=== PATIENT | female | born 1945 | race Caucasian/White ===

== ENCOUNTER 2018-04-30 13:17 | Inpatient (IN) ==
[2018-04-30] MEDS ORDERED: methylPREDNISolone 125 MG/2 ML VIAL IVP ONE (13:42)
[2018-04-30] MEDS ORDERED: Ipratropium/Albuterol Neb 3 ML IH ONE (13:42)
--- NOTE | 2018-04-30 13:49 | Emergency Department Note ---
Disposition Clinical Impression: Left lower lobe pneumonia, Elevated troponin, Shortness of breath, COPD (chronic obstructive pulmonary disease) Disposition: Admitted As Inpatient Condition: Good Referrals: Joseph Naidu DO [Primary Care Provider] - Forms: ED Satisfaction Letter [facility] - General Chief Complaint: ED Shortness of Breath/Dyspnea Stated Complaint: [place] Time Seen by Provider: 04/30/18 13:38 Source: patient Mode of arrival: ambulatory Limitations: no limitations Nursing Notes Reviewed: Yes Vital Signs Reviewed: Yes - History of Present Illness 73-year-old female presents emergency room for shortness of breath and coughing. Patient's been sick since Tuesday. Increasing cough. Increasing dyspnea. Subjective fevers. Intermittent chest pain. History of CHF as well as a history of COPD. Patient does do home inhalers but does not use any home nebulizer treatments. She does not wear home oxygen. She has a smoking history. She states she does have a history of COPD and follows with a knife operator as well as a optical engineer for her CHF history. No other complaints at this time. She denies any recent weight gain. She denies leg swelling. - Related Data Allergies Allergy/AdvReac Type Severity Reaction Status Date / Time Penicillins [PCN] Allergy See Verified 04/30/18 14:41 Comments Tetanus Vaccines and Toxoid Allergy See Verified 04/30/18 14:41 Comments All systems ED: reviewed and negative except as stated. Review of Systems: As Per HPI Constitutional: Reports: fever Eyes: Reports: as per HPI ENT ED: Reports: as per HPI Cardiovascular: Reports: chest pain Respiratory: Reports: cough, dyspnea Gastrointestinal: Reports: as per HPI Genitourinary: Reports: as per HPI Musculoskeletal: Reports: as per HPI Integumentary: Reports: as per HPI Neurological: Reports: as per HPI Psychiatric: Reports: as per HPI Endocrine: Reports: as per HPI, fatigue Hematological/Lymphatic: Reports: as per HPI Allergic/Immunologic: Reports: as per HPI Physical Exam - General Limitations: no limitations - Head Head exam: atraumatic, normocephalic - ENT ENT exam: normal exam - Neck Neck exam: Present: normal inspection - Chest Chest inspection: Present: normal inspection - Respiratory Respiratory exam: Present: respiratory distress, wheezes (Patient has extensive bilateral wheezes. Slight tachypnea.). Absent: accessory muscle use - Cardiovascular Cardiovascular exam: Present: regular rate, normal rhythm, normal heart sounds - Abdominal Exam Abdominal exam: Present: soft, Non-Tender, normal bowel sounds - Extremities Exam Extremities exam: Present: normal inspection. Absent: tenderness - Expanded Lower Extremity Exam Hip/Pelvis exam: Present: normal inspection - Back Exam Back exam: Present: normal inspection - Neurological Exam Neurological exam: Present: alert, oriented X3 - Psychiatric Psychiatric exam: Present: normal affect, normal mood - Skin Skin exam: Present: warm, dry, intact Course Vital Signs Temperature 97.6 F 04/30/18 13:24 Pulse Rate 68 04/30/18 13:24 Respiratory Rate 24 04/30/18 13:24 Blood Pressure 123/70 04/30/18 13:24 O2 Sat by Pulse Oximetry 88 04/30/18 13:24 Temperature 97.6 F 04/30/18 13:24 Pulse Rate 63 04/30/18 16:18 Respiratory Rate 22 04/30/18 16:18 Blood Pressure 132/52 04/30/18 16:18 O2 Sat by Pulse Oximetry 100 04/30/18 16:18 Oxygen Delivery Oxygen Delivery Nasal Cannula Shortness of Breath/Dyspnea - [facility] Narrative Medical decision making narrative: Patient's troponin was elevated at 0.[address] scan did not reveal any evidence of pulmonary embolus but did confirm the left-sided pneumonia. She has no active chest pain at this time. I do have her on oxygen. She does take aspirin and Plavix home. Patient will be admitted. I did speak with the hospitalist. I have ordered IV Levaquin for the pneumonia. Troponin is likely secondary to her infection causing hypoxia. - Medical Records Medical records reviewed: Yes I reviewed the patient's medical records. - Lab Data Lab results reviewed: Yes I reviewed the patient's lab results. Result diagrams: 04/30/18 14:15 04/30/18 14:15 Lab Results 04/30/18 04/30/18 04/30/18 Range/Units 14:15 14:15 14:15 WBC 14.1 H (4.3-11.1) K/mcL RBC 4.16 (3.82-4.97) M/mcL Hgb 10.9 L (11.5-15.4) g/dL Hct 34.0 L (35.3-44.9) % MCV 81.7 L (83.0-100.0) fL MCH 26.2 L (28.0-33.3) pg MCHC 32.1 (31.6-35.5) g/dL RDW 16.6 H (11.5-14.5) % Plt Count 139 L (140-400) K/mcL MPV 11.1 (9.4-12.4) fL Immature Gran % 0.6 (0-4) % Seg Neutrophils % 90.4 % Lymphocytes % 3.6 % Monocytes % 5.3 % Eosinophils % 0.0 % Basophils % 0.1 % Neutrophils # 12.7 H (1.6-8.9) K/mcL Lymphocytes # 0.5 L (0.6-4.6) K/mcL Monocytes # 0.8 (0.0-1.3) K/mcL Eosinophils # 0.0 (0.0-0.6) K/mcL Basophils # 0.0 (0.0-0.2) K/mcL Sodium 133 L (136-145) mEq/L Potassium 3.5 (3.5-5.1) mEq/L Chloride 101 (98-107) mEq/L Carbon Dioxide 24 (23-29) mEq/L BUN 9 (8-23) mg/dL Creatinine 1.01 (0.60-1.20) mg/dL Est GFR ( Amer) > 60 (> 60) Est GFR (Non-Af Amer) 54 L (> 60) BUN/Creatinine Ratio 9 (6-26) Glucose 129 H (70-105) mg/dL Calculated Osmolality 276 L (280-300) Calcium 8.6 (8.6-10.3) mg/dL Troponin I 0.11 H* (< 0.04) ng/mL B-Natriuretic Peptide 872 H (Less than 100) pg/mL - Radiology Data Radiology results reviewed: Yes I reviewed the patient's radiology results. - EKG Data EKG attestation: Yes I reviewed and interpreted this EKG. EKG results narrative: EKG shows a rate of 68. Dual-chamber paced rhythm. No other abnormality seen. Critical Care Time Critical Care Time: No
[2018-04-30 14:31] LABS: Basophils % 0.1 %; Hemoglobin 10.9 g/dL (11.5-15.4); Immature Granulocytes % 0.6 % (0-4); Lymphocytes # 0.5 K/mcL (0.6-4.6); Lymphocytes % 3.6 %; Mean Corpuscular HGB Conc 32.1 g/dL (31.6-35.5); Mean Corpuscular Hemoglobin 26.2 pg (28.0-33.3); Mean Corpuscular Volume 81.7 fL (83.0-100.0); Mean Platelet Volume 11.1 fL (9.4-12.4); Monocytes # 0.8 K/mcL (0.0-1.3); Monocytes % 5.3 %; Neutrophils # 12.7 K/mcL (1.6-8.9); Platelet Count 139 K/mcL (140-400); Red Blood Count 4.16 M/mcL (3.82-4.97); Red Cell Distribution Width 16.6 % (11.5-14.5); Segmented Neutrophils % 90.4 %
[2018-04-30 14:52] LABS: BUN/Creatinine Ratio 9 (6-26); Blood Urea Nitrogen 9 mg/dL (8-23); Calcium 8.6 mg/dL (8.6-10.3); Carbon Dioxide 24 mEq/L (23-29); Chloride 101 mEq/L (98-107); Glucose 129 mg/dL (70-105); Osmolality,Calculated 276 (280-300); Potassium 3.5 mEq/L (3.5-5.1); Sodium 133 mEq/L (136-145); eGFR For Non-African Americans 54 (> 60)
[2018-04-30 14:57] LABS: Troponin I 0.11 ng/mL (< 0.04)
[2018-04-30] MEDS ORDERED: Levofloxacin 500 MG/100 ML 500 MG/100 ML BAG IVPB ONE (15:00)
[2018-04-30] MEDS ORDERED: Isovue-370 500 ML BOTTLE IVP ONE (15:01)
[2018-04-30] MEDS ORDERED: Naloxone 0.4 MG/ML INJ IVP PRN (16:53)
[2018-04-30] MEDS ORDERED: *HR* Heparin 5,000 UNIT/ML VIAL IVP ONE (17:18)
[2018-04-30] MEDS ORDERED: *HR* Heparin 5,000 UNIT/ML VIAL IVP PRN ×2 (17:18)
[2018-04-30] MEDS ORDERED: Nitroglycerin 0.4 MG TAB.SUBL SL PRN (17:23)
[2018-04-30] MEDS ORDERED: Heparin 25,000 UNIT/250 ML D5W 25,000 UNIT/250 ML IV.SOLN IVC SCH (17:30)
--- NOTE | 2018-04-30 17:33 | Internal Med History&Physical ---
Date of Encounter: 04/30/18 Time of Encounter: 17:25 Internal Medicine - H&P: HPI Chief complaint: Shortness of breath Plans for Post Hospital Care: Home History of present illness: Ms. Jolly is a 73 year old female PMH of CHF, COPD, HLD, HTN, CAD s/p stent placement about 8 years ago. Patient presented to the ED due to shortness of breath and chest pain. Patient reports she has been feeling short of breath associated with a productive cough, subjective fever and chills since Tuesday. She reports today morning she was so short of breath that she could not even talk and decided to call EMS and was brought to the ED. The patient also reports having a 8/10 pressure like restro-sternal chest pain lasting more than one hour today. R eports feeling nauseated, denies vomiting but reports having dry heaves. Reports she has been sleeping on a recliner since February due to orthopnea, also stated she had edema in the lower extremities during the week but she has been taking a water pill and it has helped. Patient stated she has been treated for bronchitis multiple times since December, last time she was treated with steroid taper and antibiotics was in January. Past Med Surg Social Fam HX - Past Medical History Medical history: CHF, COPD, hyperlipidemia, hypertension, myocardial infarction Psychiatric history: no psych history - Social History Smoking Status: Former smoker Smokeless Tobacco Status: No Alcohol use: none Drug use: none Internal Medicine - H&P: Meds Allergy/AdvReac Type Severity Reaction Status Date / Time Penicillins [PCN] Allergy See Verified 04/30/18 14:41 Comments Tetanus Vaccines and Toxoid Allergy See Verified 04/30/18 14:41 Comments All Systems PM: A 10-system review of systems was performed and is negative for pertinent findings except as documented above in the HPI. - Constitutional Constitutional: chills, fever(s), weakness, no lethargy, no night sweats - EENT Eyes: no irritation - Cardiovascular Cardiovascular ROS IM: chest pain, dyspnea, dyspnea on exertion, lightheade dness, orthopnea, paroxysmal nocturnal dyspnea, no irregular heart rhythm, no palpitations - Respiratory Respiratory: cough, dyspnea on exertion, wheezing, chest congestion, excessive phlegm production, change in phlegm color, pain with cough - Gastrointestinal Gastrointestinal: nausea, no abdominal pain, no vomiting - Genitourinary Genitourinary: no dysuria, no urinary frequency, no urinary hesitancy, no urinary urgency - Musculoskeletal Musculoskeletal ROS IM: muscle weakness, no atrophy - Integumentary Integumentary IM: no erythema - Neurological Neurological ROS: no headache(s) - Psychiatric Psychiatric: no anxiety, no hopelessness - Endocrine Endocrine IM: no cold intolerance, no excessive sweating - Allergic/Immunologic Allergic/Immunologic: no GI upset with certain foods Additional comments: Rest of a 10 review of system negative. - Constitutional Vitals: Temp Pulse Resp BP Pulse Ox 97.6 F 63 22 132/52 100 04/30/18 17:22 04/30/18 17:22 04/30/18 17:22 04/30/18 17:22 04/30/18 17:22 Exam: Vitals: reviewed General: Alert and oriented x4. In mild distress due to shortness of breath Cardiovascular: RRR, normal S1 & S2, no rubs, murmurs or gallops. Lungs: b/l scattered expiratory wheezing, mild crackles at the bases b/l, rales at the left lower lobe. Abdomen: Obese, soft, non-tender, no rigidity. Extremities: No deformity, no edema or tenderness, no joint swelling or clubbing. Neurological: Normal cognition and motor skills. Rest of the physical exam is non contributory Internal Med - H&P Results - Labs CBC & Chem 7: 04/30/18 14:15 04/30/18 14:15 Labs: Short CBC 04/30/18 Range/Units 14:15 WBC 14.1 H (4.3-11.1) K/mcL Hgb 10.9 L (11.5-15.4) g/dL Hct 34.0 L (35.3-44.9) % Plt Count 139 L (140-400) K/mcL Neutrophils # 12.7 H (1.6-8.9) K/mcL BMP 04/30/18 14:15 Sodium 133 L Potassium 3.5 Chloride 101 Carbon Dioxide 24 BUN 9 Creatinine 1.01 Glucose 129 H Calcium 8.6 Cardiac Enzymes 04/30/18 Range/Units 14:15 Troponin I 0.11 H* (< 0.04) ng/mL - Impressions ITS Impressions Chest X-Ray 04/30/18 13:43 IMPRESSION: Left perihilar consolidation likely pneumonia. Recommend follow-up to document resolution. D/ / 04/30/2018 14:48:55 Abdoulaye Engel MD / Yvette Anthony Interpreting Provider: Abdoulaye Engel MD Chest CTA 04/30/18 15:01 IMPRESSION: 1. No evidence of pulmonary embolism 2. Left lower lobe airspace disease compatible with pneumonia 3. Trace bilateral pleural effusions with bibasilar atelectasis 4. 8 mm right lower lobe pulmonary nodule 5. Calcific coronary atherosclerosis RECOMMENDATIONS: Fleischner Society guidelines for follow-up and management of incidentally detected pulmonary nodules: Single Solid Nodule: Nodule size equals 6-8 mm In a low-risk patient, CT at 6-12 months, then consider CT at 18-24 months. In a high-risk patient, CT at 6-12 months, then CT at 18-24 months. - Low risk patients include individuals with minimal or absent history of smoking and other known risk factors. - High risk patients include individuals with a history or smoking or known risk factors. Radiology 2017 http://pubs.rsna.org/doi/full/10.1148/radiol.[email or web address] D/ / Will Enrique MD / Will Enrique MD Interpreting Provider: Will Enrique MD - Diagnostic Studies Chest x-ray Status: image reviewed by me (left lower lobe infiltrate) - Assessment and Plan (1) Acute hypoxemic respiratory failure Current Visit: Yes Status: Acute Assessment and plan: multifactorial copd vs pneumonia vs chf Plan Started on bronchodilators Q4RT scheduled Symbicort solu-medrol 125mg/IV x1 Solu-Medrol 40mg/IV Q8hr started on empiric antibiotics coverage with levofloxacin 750mg/IV daily Sputum culture and gram stain O2 by nasal cannula, titrate for O2Sat >92% ABG ordered blood culture (2) Pneumonia Current Visit: Yes Status: Acute Assessment and plan: plan of care as above Qualifiers: Pneumonia type: due to unspecified organism Laterality: left Lung location: lower lobe of lung Qualified Code(s): J18.1 - Lobar pneumonia, unspecified organism (3) CHF (congestive heart failure) Current Visit: Yes Status: Acute Assessment and plan: patient with shortness of breath elevated bnP and mild crackles at the bases b/l. will start patient on furosemide 20mg/IV BID. fluids restriction to 1.5 litters a day, will resume bb tomorrow morning. daily weight and strict intake and output. Qualifiers: Heart failure type: unspecified Heart failure chronicity: acute Qualified Code(s): I50.9 - Heart failure, unspecified (4) Chest pain Current Visit: Yes Status: Acute Assessment and plan: patient reporting retro-sternal crushing chest pain lasting >1 hour. patient with a significant history of CAD with multiple stent placed. will start patient on a heparin drip nitro 0.4mg SubL Q5Min x3 PRN clopidogrel 75mg/PO daily aspirin 325mg/PO once followed by aspirin 81mg/PO daily serial troponins telemetry monitoring TTE ordered to evaluate for wall motion abnormalities cardiology consulted, recommendations appreciated Qualifiers: Chest pain type: unspecified Qualified Code(s): R07.9 - Chest pain, unspecified (5) Elevated troponin Current Visit: Yes Status: Acute Assessment and plan: multi-factorial possible due to demand ischemia in the setting of copd exacerbation and pneumonia. plan of care as above. (6) CAD (coronary artery disease) Current Visit: Yes Status: Chronic Assessment and plan: will resume home medications. patient on ranexa, and plavix. Qualifiers: Coronary Disease-Associated Artery/Lesion type: unspecified vessel or lesion type [place] vs. transplanted heart: unspecified whether [place] or transplanted heart Associated angina: angina presence unspecified Qualified Code(s): I25.10 - Atherosclerotic heart disease of [place] coronary artery without angina pectoris (7) HLD (hyperlipidemia) Current Visit: Yes Status: Chronic Assessment and plan: continue simvastatin 40mg/PO daily. lipid panel ordered Qualifiers: Hyperlipidemia type: unspecified Qualified Code(s): E78.5 - Hyperlipidemia, unspecified (8) COPD (chronic obstructive pulmonary disease) Current Visit: Yes Status: Acute Assessment and plan: plan of care as per problem #1. Qualifiers: COPD type: COPD with acute exacerbation Qualified Code(s): J44.1 - Chronic obstructive pulmonary disease with (acute) exacerbation (9) DVT prophylaxis Current Visit: Yes Status: Acute Assessment and plan: patient on a heparin drip due to r/o acs - Time Spent With Patient Total time spent is greater than 50% in coordination of care (as documented) at patient's floor/unit and/or counseling patient: Greater than 35 minutes (45)
[2018-04-30] MEDS ORDERED: Aspirin 325 MG TABLET PO ONE (17:42)
[2018-04-30] MEDS ORDERED: Dextrose Gel 15 GM/37.5 ML TUBE PO PRN ×2 (17:48)
[2018-04-30] MEDS ORDERED: D5% in Water 1,000 ML IVC PRN (17:48)
[2018-04-30] MEDS ORDERED: *HR* Dextrose 50 % in Water (Syg) 50 ML SYRINGE IVP PRN (17:48)
[2018-04-30] MEDS ORDERED: *HR* Heparin 5,000 UNIT/ML VIAL SQ SCH (18:00)
[2018-04-30 18:03] LABS: Hematocrit 33.7 % (35.3-44.9); Hemoglobin 10.8 g/dL (11.5-15.4); Mean Corpuscular Hemoglobin 25.6 pg (28.0-33.3); Mean Corpuscular Volume 79.9 fL (83.0-100.0); Mean Platelet Volume 11.1 fL (9.4-12.4); Platelet Count 137 K/mcL (140-400); Red Blood Count 4.22 M/mcL (3.82-4.97); Red Cell Distribution Width 16.8 % (11.5-14.5)
[2018-04-30 18:13] LABS: INR 1.1; Prothrombin Time 12.9 Seconds (9.4-12.1)
[2018-04-30 18:14] LABS: ABG Base Excess -1 mEq/L (-2 to 3); ABG HCO3 22 mEq/L (21-27); ABG Oxygen Saturation 95 % (95-98); ABG PCO2 30 mmHg (35-45); ABG PH 7.48 pH Units (7.32-7.45); ABG PO2 67 mmHg (85-104); ABG TCO2 23 mEq/L (20-26)
[2018-04-30] MEDS: Furosemide 20 MG/2 ML VIAL IVP SCH ×2 (18:32→18:40)
[2018-04-30] MEDS: Ipratropium/Albuterol Neb 3 ML IH SCH ×2 (20:00→23:57)
[2018-04-30] MEDS: Budesonide/Formoterol 160/4.5 1 PUFF INH IH SCH (20:00)
[2018-04-30] MEDS: Ranolazine 500 MG TAB.ER.12H PO SCH (20:46)
[2018-04-30] MEDS: MethylPREDNISolone 40 MG/ML VIAL IVP SCH (23:50)
[2018-05-01 02:22] LABS: Basophils % 0.1 %; Hematocrit 31.9 % (35.3-44.9); Immature Granulocytes % 0.8 % (0-4); Lymphocytes # 0.7 K/mcL (0.6-4.6); Lymphocytes % 4.3 %; Mean Corpuscular HGB Conc 31.3 g/dL (31.6-35.5); Mean Corpuscular Hemoglobin 25.6 pg (28.0-33.3); Mean Corpuscular Volume 81.6 fL (83.0-100.0); Monocytes # 0.4 K/mcL (0.0-1.3); Monocytes % 2.5 %; Neutrophils # 15.7 K/mcL (1.6-8.9); Platelet Count 133 K/mcL (140-400); Red Blood Count 3.91 M/mcL (3.82-4.97); Red Cell Distribution Width 16.5 % (11.5-14.5); Segmented Neutrophils % 92.3 %
[2018-05-01 02:40] LABS: Albumin 3.5 g/dL (3.5-5.7); Albumin/Globulin Ratio 1.4 (1.1-2.2); Bilirubin,Direct 0.2 mg/dL (0.0-0.2); Bilirubin,Indirect 0.3 mg/dL (0.0-1.2); Bilirubin,Total 0.5 mg/dL (0.3-1.0); Chol/HDL Ratio 2.2 (0-4.9); Globulin 2.5 g/dL (2.4-3.5)
[2018-05-01 02:43] LABS: BUN/Creatinine Ratio 11 (6-26); Blood Urea Nitrogen 12 mg/dL (8-23); Calcium 8.5 mg/dL (8.6-10.3); Carbon Dioxide 22 mEq/L (23-29); Chloride 100 mEq/L (98-107); Glucose 173 mg/dL (70-105); Magnesium 1.5 mg/dL (1.6-2.6); Osmolality,Calculated 278 (280-300); Phosphorous 1.7 mg/dL (2.7-4.5); Potassium 2.8 mEq/L (3.5-5.1); Sodium 132 mEq/L (136-145); eGFR For Non-African Americans 52 (> 60)
[2018-05-01] MEDS ORDERED: MethylPREDNISolone 40 MG/ML VIAL IVP SCH (04:00)
[2018-05-01] MEDS: Ipratropium/Albuterol Neb 3 ML IH SCH ×6 (04:04→23:34)
[2018-05-01] MEDS: Budesonide/Formoterol 160/4.5 1 PUFF INH IH SCH ×2 (07:22→19:58)
[2018-05-01] MEDS ORDERED: Levofloxacin 750 MG/150 ML 750 MG/150 ML BAG IVPB SCH (09:00)
[2018-05-01] MEDS: Insulin LISPRO 300 UNITS/3 ML VIAL SQ SCH ×3 (10:14→17:57)
[2018-05-01] MEDS: Metoprolol XL (24 HR) Succ 50 MG TAB.ER.24H PO SCH (10:17)
[2018-05-01] MEDS: Aspirin Enteric Coated 81 MG Tablet PO SCH (10:17)
[2018-05-01] MEDS: Furosemide 20 MG/2 ML VIAL IVP SCH ×2 (10:17→17:57)
[2018-05-01] MEDS: MethylPREDNISolone 40 MG/ML VIAL IVP SCH ×2 (10:17→17:57)
[2018-05-01] MEDS: Ranolazine 500 MG TAB.ER.12H PO SCH ×2 (10:18→21:21)
--- NOTE | 2018-05-01 10:21 | Cardiology Consult Note ---
<Esteban Castillo - Last Filed: 05/01/18 14:56> Date of Encounter: 05/01/18 Time of Encounter: 09:30 Assessment and Plan (1) Elevated troponin Current Visit: Yes Status: Acute Likely 2/2 hypoxia with pneumonia Trended 0.11 -> 0.14 -> 0.07 -> 0.04 EKG showed dual paced rhythm at rate of 68 bpm Chest pain associated with coughing, likely musculoskeletal in nature Echo revealed LVEF 40-45% which is somewhat improved when compared to previous echo Discontinue heparin drip Cardiology will sign off at this time. Thank you for involving us in the care of this patient. Please do not hesitate to call with further questions. (2) Left lower lobe pneumonia Current Visit: Yes Status: Acute As seen on CXR and CTA chest Currently on supplemental O2, IV steroids, scheduled nebs, and IV Levaquin Management per primary Qualifiers: Pneumonia type: due to unspecified organism Qualified Code(s): J18.1 - Lobar pneumonia, unspecified organism (3) COPD exacerbation Current Visit: Yes Status: Acute 2/2 pneumonia Management per primary Currently receiving IV steroids, scheduled nebs, and IV Levaquin (4) CAD (coronary artery disease) Current Visit: Yes Status: Chronic Continue home ASA, Plavix, Toprol, Ranexa, and Zocor PRN nitro Qualifiers: Coronary Disease-Associated Artery/Lesion type: unspecified vessel or lesion type [place] vs. transplanted heart: unspecified whether [place] or transplanted heart Associated angina: angina presence unspecified Qualified Code(s): I25.10 - Atherosclerotic heart disease of [place] coronary artery without angina pectoris (5) Acute on chronic systolic (congestive) heart failure Current Visit: Yes Status: Acute Echo from today revealed the following: - LVEF 40-45% - Moderate LV diastolic dysfunction - Moderately dilated LV - Mild mitral regurgitation Per outpatient chart review, EF on echo from 01/2012 showed LVEF of 35-40% Continue diuresis at this time (6) HLD (hyperlipidemia) Current Visit: Yes Status: Chronic Continue home Zocor 40mg daily Qualifiers: Hyperlipidemia type: unspecified Qualified Code(s): E78.5 - Hyperlipidemia, unspecified Discussion w patient/family: The assessment and plan as outlined above was discussed with the patient and/or family members who expressed understanding and agreement. All questions were answered. Thank you for involving us in the care of your patient. Please call with any questions. History of Present Illness Consult date: 04/30/18 Requesting physician: Minh Frederick Consult reason: Chest pain with elevated troponins Chief complaint: Shortness of breath History of present illness: Ms. Jolly is a 73 year old female with PMH of CHF, COPD, HLD, HTN, CAD with stents placed approximately 8 years ago. She originally presented to the ED on 04/30 complaining of shortness of breath and chest pain. States she has been experiencing these symptoms with increased cough, fever, chills, and wheezing for approximately 5 days at this time. Describes the chest pain as substernal worsened with coughing. Admits to accompanying nausea. CXR from the ED revealed left perihilar consolidation likely pneumonia. Chest CTA revealed left lower lobe airspace disease compatible with pneumonia, negative for PE, with an 8 mm right lower lobe pulmonary nodule. WBC was elevated at 14.1. Initial troponin was elevated at 0.11. BNP of 872. EKG from the ED showed dual paced rhythm with rate of 68. When admitted she was started on scheduled bronchodilators, symbicort, IV steroids, IV levaquin, IV Lasix, and fluid restricted diet. Pt seen and examined at bedside. States she continues to be somewhat short of breath and feels generally unwell, but states significant improvement after br eathing treatments. States chest pain has improved and is now only present when she coughs. Denies any headache, numbness, or tingling. Past Med Surg Social Fam HX - Past Medical History Medical history: CHF, COPD, hyperlipidemia, hypertension, myocardial infarction Psychiatric history: no psych history - Social History Smoking Status: Former smoker Smokeless Tobacco Status: No Alcohol use: none Drug use: none - Family History Mother Living Status: Still Living Hx Family Cardiac Disorders: Yes (MA) Hx Family Cancer: Yes (colon) Father Living Status: Hx Family Cardiac Disorders: Yes (MA) Medications and Allergies Acetaminophen [Tylenol] 325 mg PO Q4H PRN 05/01/18 [History] Albuterol Sulfate [Ventolin Hfa] 2 puff IH Q6H PRN 05/01/18 [History] Allopurinol [Zyloprim 100 MG] 100 mg PO DAILY 05/01/18 [History] Aspirin [Lo-Dose Aspirin EC] 81 mg PO DAILY 05/01/18 [History] Calcium Carbonate [Calcium] 1,200 mg PO BID 05/01/18 [History] Cholecalciferol (Vitamin D3) [Vitamin D] 2,000 unit PO BID 05/01/18 [History] Clopidogrel [Plavix] 75 mg PO DAILY 05/01/18 [History] DiphenhydraMINE [Benadryl] 25 mg PO PRN PRN 05/01/18 [History] EPINEPHrine [Epipen] 0.3 mg IM ONCE PRN 05/01/18 [History] Fluticasone/Vilanterol [Breo Ellipta 100-25 Mcg INH] 1 puff IH DAILY 05/01/18 [History] Lisinopril [Zestril] 5 mg PO DAILY 05/01/18 [History] Loratadine [Claritin] 10 mg PO DAILY PRN 05/01/18 [History] Meloxicam 15 mg PO DAILY 05/01/18 [History] Metoprolol Succinate [Toprol Xl] 100 mg PO DAILY 05/01/18 [History] Nitroglycerin 0.4 mg SL Q5M PRN 05/01/18 [History] Omeprazole [PriLOSEC] 20 mg PO DAILY 05/01/18 [History] Ranolazine [Ranexa] 1,000 mg PO BID 05/01/18 [History] Simvastatin [Zocor] 40 mg PO HS 05/01/18 [History] Spironolactone [Aldactone] 25 mg PO DAILY 05/01/18 [History] Umeclidinium [place] [Incruse Ellipta] 1 puff IH DAILY 05/01/18 [History] Varenicline Tartrate [Chantix Starting Month GRACE] 1 tab PO PER PKG DI 05/01/18 [History] Allergy/AdvReac Type Severity Reaction Status Date / Time carvedilol [From Coreg] Allergy See Verified 05/01/18 14:34 Comments Penicillins [PCN] Allergy See Verified 05/01/18 14:34 Comments Tetanus Vaccines and Toxoid Allergy See Verified 05/01/18 14:34 Comments All Systems Review: The remainder of the systems were reviewed and are negative - Constitutional Constitutional: chills, fatigue, fever(s), weakness, no frequent falls, no headache(s), no night sweats - EENT Eyes: no blurred vision, no loss of vision - Cardiovascular Cardiovascular: chest pain at rest, chest pain with exertion, dyspnea at rest, dyspnea on exertion, leg edema, orthopnea, no lightheadedness, no palpitations, no paroxysmal nocturnal dyspnea - Respiratory Respiratory: cough, dyspnea, wheezing, no hemoptysis - Gastrointestinal Gastrointestinal: nausea, no abdominal pain, no constipation, no diarrhea - Genitourinary Genitourinary: no dysuria, no hematuria - Musculoskeletal Musculoskeletal: no arthralgias, no myalgias - Integumentary Integumentary: no erythema, no rash, no unusual bruising - Neurological Neurological: no dizziness, no numbness, no syncope, no tingling - Hematological/Lymphatic Hematologic/Lymphatic: no easy bleeding, no easy bruising Physical Examination Vital Signs, Last 4 Hours Temp Pulse Resp BP Pulse Ox 05/01/18 08:08 97.3 F L 61 16 109/46 95 05/01/18 07:24 18 96 General: Conversant, Other (mild distress, appears ill ) HEENT: Atraumatic, Normocephaly, Mucus Membranes Moist Neck: No JVD, Normal carotid pulses Cardiac: Reg Rate and Rhythm, Normal S1 and S2, No Murmur Lungs: Other (grossly diminished breath sounds with diffuse expiratory wheezes ) Neuro: Alert and responsive, No focal deficits noted Abdomen: Soft, Non-Tender Skin: No rashes noted on visualized skin Musculoskeletal: No Chest Wall Tenderness Extremities: No Clubbing, No Cyanosis, No Edema, Normal Pulses Results 05/01/18 01:44 05/01/18 01:44 Lab Results 04/30/18 04/30/18 04/30/18 14:15 14:15 14:15 WBC 14.1 H Hgb 10.9 L Hct 34.0 L Plt Count 139 L INR Sodium 133 L Potassium 3.5 Chloride 101 Carbon Dioxide 24 BUN 9 Creatinine 1.01 Glucose 129 H Calcium 8.6 Magnesium Total Bilirubin AST ALT Alkaline Phosphatase Troponin I 0.11 H* B-Natriuretic Peptide 872 H 04/30/18 04/30/18 04/30/18 17:48 17:48 17:48 WBC 14.8 H Hgb 10.8 L Hct 33.7 L Plt Count 137 L INR 1.1 Sodium Potassium Chloride Carbon Dioxide BUN Creatinine Glucose Calcium Magnesium Total Bilirubin AST ALT Alkaline Phosphatase Troponin I 0.14 H* B-Natriuretic Peptide 04/30/18 05/01/18 05/01/18 23:16 01:44 01:44 WBC 17.1 H Hgb 10.0 L Hct 31.9 L Plt Count 133 L INR Sodium 132 L Potassium 2.8 L Chloride 100 Carbon Dioxide 22 L BUN 12 Creatinine 1.05 Glucose 173 H Calcium 8.5 L Magnesium 1.5 L Total Bilirubin AST ALT Alkaline Phosphatase Troponin I 0.07 H* B-Natriuretic Peptide 05/01/18 05/01/18 01:44 05:59 WBC Hgb Hct Plt Count INR Sodium Potassium Chloride Carbon Dioxide BUN Creatinine Glucose Calcium Magnesium Total Bilirubin 0.5 AST 18 ALT 9 Alkaline Phosphatase 70 Troponin I 0.04 H* B-Natriuretic Peptide - Imaging and Cardiology Chest Xray: report reviewed, image reviewed Echo: report reviewed, image reviewed Other Results: Chest CTA images and report reviewed - EKG Interpretation EKG results cardiology: personally reviewed, other (dual paced rhythm with rate of 68) Consult Discharge Plan - Plan Referrals: Joseph Naidu DO [Primary Care Provider] - 05/08/18 1:30 pm <Raisa Darling - Last Filed: 05/01/18 16:04> Date of Encounter: 05/01/18 - Attending Attestation I examined this patient and my medical decision-making was reviewed with the Resident Physician. I agree with the documented findings, disposition and treatment plan as described. Ms. Jolly presents with pleuritic chest discomfort in setting of PNA. Troponin elevated at 0.14. ECG paced rhythm. Echo demonstrated LVEF 45% which is improved when compared to prior assessments of LVEF. No further cardiac testing is warranted at this time. Recommend discontinuing heparin gtt. Recommend outpatient Cardiology follow up. Will sign off. Assessment and Plan Discussion w patient/family: The assessment and plan as outlined above was discussed with the patient and/or family members who expressed understanding and agreement. All questions were answered. Thank you for involving us in the care of your patient. Please call with any questions. History of Present Illness History of present illness: Ms. Jolly is a 73 year old female All Systems Review: The remainder of the systems were reviewed and are negative Physical Examination Vital Signs, Last 4 Hours Temp Pulse Resp BP Pulse Ox 05/01/18 15:31 97.4 F L 89 17 108/63 94 Results 05/01/18 01:44 05/01/18 01:44 Lab Results 04/30/18 04/30/18 04/30/18 17:48 17:48 17:48 WBC 14.8 H Hgb 10.8 L Hct 33.7 L Plt Count 137 L INR 1.1 Sodium Potassium Chloride Carbon Dioxide BUN Creatinine Glucose Calcium Magnesium Total Bilirubin AST ALT Alkaline Phosphatase Troponin I 0.14 H* 04/30/18 05/01/18 05/01/18 23:16 01:44 01:44 WBC 17.1 H Hgb 10.0 L Hct 31.9 L Plt Count 133 L INR Sodium 132 L Potassium 2.8 L Chloride 100 Carbon Dioxide 22 L BUN 12 Creatinine 1.05 Glucose 173 H Calcium 8.5 L Magnesium 1.5 L Total Bilirubin AST ALT Alkaline Phosphatase Troponin I 0.07 H* 05/01/18 05/01/18 01:44 05:59 WBC Hgb Hct Plt Count INR Sodium Potassium Chloride Carbon Dioxide BUN Creatinine Glucose Calcium Magnesium Total Bilirubin 0.5 AST 18 ALT 9 Alkaline Phosphatase 70 Troponin I 0.04 H*
--- NOTE | 2018-05-01 13:41 | Internal Med Progress Note ---
Hospitalist Progress Note - Encounter Date of Encounter: 05/01/18 Time of Encounter: 12:25 - Subjective Interval History: Ms. Jolly is a 73 year old female with PMH of CHF, COPD, HLD, HTN and CAD with stents placed approximately 8 years ago now presented to the ED complaining of shortness of breath and chest pain. States she has been experiencing these symptoms with increased cough, fever, chills, and wheezing for approximately 5 days at this time. Describes the chest pain as substernal worsened with coughing. Admits to accompanying nausea. CXR from the ED revealed left perihilar consolidation likely pneumonia. Chest CTA revealed left lower lobe airspace disease compatible with pneumonia, negative for PE, with an 8 mm right lower lobe pulmonary nodule. His initial troponin was elevated at 0.11. BNP of 872. EKG from the ED showed dual paced rhythm with rate of 68. She was admitted in the hospital and started her on IV steroids, empirical antibiotic and IV Lasix. Since her troponin were elevated she was started on heparin gtt. She denied any more active chest pain. Still have cough with expectoration. She is on3 lit O2 now. - Exam Vitals: Temp Pulse Resp BP Pulse Ox 97.4 F L 61 18 99/61 94 05/01/18 11:46 05/01/18 11:46 05/01/18 11:46 05/01/18 11:46 05/01/18 11:46 Exam: Gen: Alert, awake, Oriented to time,place and person Chest: Diminished breath sounds B/L, Moderate wheezing, No crackles, mild rales, ronchi+ Heart: S1S2+ RRR No murmurs Abd: Soft, NT, BS +, No organomegaly Ext: No edema, pulses are palpable, No calf tenderness Neuro : Benign findings Skin: No rash. - Assessment and Plan (1) COPD exacerbation Current Visit: Yes Status: Acute Assessment and Plan: Improving cont systemic steroids continue frequent bronchodilator therapy continue empirical antibiotic levofloxacin will try to wean her off the oxygen as she tolerates encouraged to use frequent incentive spirometry (2) Left lower lobe pneumonia Current Visit: Yes Status: Acute Assessment and Plan: mostly bacteria cont Levaquin will f/u on sputum cx (3) Acute hypoxemic respiratory failure Current Visit: Yes Status: Acute Assessment and Plan: multifactorial copd vs pneumonia vs chf Currently on 3 lit cont close monitoring cont above care will try to wean her off the oxygen as she tolerates Patient does need to stay in the hospital more than 2 midnights due to her complex medical problems. So we will change her to full admission today. I did review my colleague Dr. Metzger H & P including HPI, PMH, PSH, FH, SH, and ROS no changes noticed (4) Acute on chronic systolic (congestive) heart failure Current Visit: Yes Status: Acute Assessment and Plan: Reviewed her echocardiogram showed LVEF 40 - 45 % she does have mild CHF exacerbation will switch to oral Lasix today continue close monitoring cardiology on board, appreciate the recommendations (5) Chest pain Current Visit: Yes Status: Acute Assessment and Plan: atypical mostly due to cough and COPD exacerbation Trop peaked @ 0.1, now trended down to ischemia 0.04 mostly due to demand ischemia no need of Heaprin gtt. d/c heparin cont ASA Reviewed FLP - LDL @ 51 resumed home meds once they confirmed (6) Elevated troponin Current Visit: Yes Status: Acute Assessment and Plan: multi-factorial possible due to demand ischemia in the setting of copd exacerbation and pneumonia. plan of care as above. (7) CAD (coronary artery disease) Current Visit: Yes Status: Chronic (8) HLD (hyperlipidemia) Current Visit: Yes Status: Chronic - Time Spent with Patient Total time spent is greater than 50% in coordination of care (as documented) at patient's floor/unit and/or counseling patient: Internal Medicine: Result - Labs CBC & Chem 7: 05/01/18 01:44 05/01/18 01:44 Labs: Short CBC 04/30/18 04/30/18 05/01/18 Range/Units 14:15 17:48 01:44 WBC 14.1 H 14.8 H 17.1 H (4.3-11.1) K/mcL Hgb 10.9 L 10.8 L 10.0 L (11.5-15.4) g/dL Hct 34.0 L 33.7 L 31.9 L (35.3-44.9) % Plt Count 139 L 137 L 133 L (140-400) K/mcL Neutrophils # 12.7 H 15.7 H (1.6-8.9) K/mcL BMP 04/30/18 05/01/18 14:15 01:44 Sodium 133 L 132 L Potassium 3.5 2.8 L Chloride 101 100 Carbon Dioxide 24 22 L BUN 9 12 Creatinine 1.01 1.05 Glucose 129 H 173 H Calcium 8.6 8.5 L Cardiac Enzymes 04/30/18 04/30/18 04/30/18 Range/Units 14:15 17:48 23:16 Troponin I 0.11 H* 0.14 H* 0.07 H* (< 0.04) ng/mL 05/01/18 Range/Units 05:59 Troponin I 0.04 H* (< 0.04) ng/mL Liver Function 05/01/18 Range/Units 01:44 Total Bilirubin 0.5 (0.3-1.0) mg/dL Direct Bilirubin 0.2 (0.0-0.2) mg/dL AST 18 (13-39) Units/L ALT 9 (7-52) Units/L Alkaline Phosphatase 70 (34-104) Units/L Albumin 3.5 (3.5-5.7) g/dL - ABG Interpretation ABG results: ABG ABG pH 7.48 pH Units (7.32-7.45) H 04/30/18 18:10 ABG pCO2 30 mmHg (35-45) L 04/30/18 18:10 ABG pO2 67 mmHg (85-104) L 04/30/18 18:10 ABG O2 Saturation 95 % (95-98) 04/30/18 18:10 PT/INR, D-dimer PT 12.9 Seconds (9.4-12.1) H 04/30/18 17:48 - Impressions Impressions Chest X-Ray 04/30/18 13:43 IMPRESSION: Left perihilar consolidation likely pneumonia. Recommend follow-up to document resolution. D/ / 04/30/2018 14:48:55 Abdoulaye Engel MD / Yvette Anthony Interpreting Provider: Abdoulaye Engel MD Chest CTA 04/30/18 15:01 IMPRESSION: 1. No evidence of pulmonary embolism 2. Left lower lobe airspace disease compatible with pneumonia 3. Trace bilateral pleural effusions with bibasilar atelectasis 4. 8 mm right lower lobe pulmonary nodule 5. Calcific coronary atherosclerosis RECOMMENDATIONS: Fleischner Society guidelines for follow-up and management of incidentally detected pulmonary nodules: Single Solid Nodule: Nodule size equals 6-8 mm In a low-risk patient, CT at 6-12 months, then consider CT at 18-24 months. In a high-risk patient, CT at 6-12 months, then CT at 18-24 months. - Low risk patients include individuals with minimal or absent history of smoking and other known risk factors. - High risk patients include individuals with a history or smoking or known risk factors. Radiology 2017 http://pubs.rsna.org/doi/full/10.1148/radiol.[email or web address] D/ / Will Enrique MD / Will Enrique MD Interpreting Provider: Will Enrique MD Echocardiogram 05/01/18 11:00 Impressions: LVEF 40-45%. Moderate left ventricular diastolic dysfunction. Moderately dilated left ventricle. The right ventricle was not well visualized but appeared grossly normal in size and function Mild mitral regurgitation. No evidence of pulmonary hypertension. A device lead was visualized in the right atrium and right ventricle. Left Ventricular Wall Motion: Rest Echo Findings The apex, apical inferior, mid inferior, apical anterior, mid anterior, basal anterior, apical septal, mid inferior septal, basal inferior septal, apical lateral, mid anterior lateral, basal anterior lateral, mid anterior septal, mid inferior lateral and basal inferior lateral pimentel were hypokinetic. The basal inferior and basal anterior septal pimentel were akinetic. Findings: Study Quality * Technically adequate exam. ECG Findings * Sinus rhythm with BBB. Left Ventricle * Atypical septal motion consistent with bundle branch block. * Moderate left ventricular diastolic dysfunction. * Mild concentric left ventricular hypertrophy. * Moderately dilated left ventricle. * LVEF 40-45%. Right Ventricle * The right ventricle was not well visualized but appeared grossly normal in size and function Left Atrium * Normal left atrial size. Right Atrium * Normal right atrial size. Interatrial Septum * Interatrial septum not well evaluated. Aortic Valve * Aortic valve not well visualized. * No aortic stenosis. * Trace aortic regurgitation. Mitral Valve * No mitral stenosis. * Normal mitral valve structure. * Mild mitral regurgitation. Tricuspid Valve * Trace tricuspid regurgitation. * No tricuspid stenosis. * Normal tricuspid valve structure. * No evidence of pulmonary hypertension. Pulmonic Valve * No pulmonic regurgitation. Aorta * Normally sized aortic root. Pericardium * The pericardium appears normal. IVC * The IVC is dilated. Device lead * A device lead was visualized in the right atrium and right ventricle. Consult Discharge Plan - Plan Referrals: Joseph Naidu DO [Primary Care Provider] - 05/08/18 1:30 pm (5) Chest pain Qualifiers: Chest pain type: unspecified Qualified Code(s): R07.9 - Chest pain, unspecified (7) CAD (coronary artery disease) Qualifiers: Coronary Disease-Associated Artery/Lesion type: unspecified vessel or lesion type [place] vs. transplanted heart: unspecified whether [place] or transplanted heart Associated angina: angina presence unspecified Qualified Code(s): I25.10 - Atherosclerotic heart disease of [place] coronary artery without angina pectoris (8) HLD (hyperlipidemia) Qualifiers: Hyperlipidemia type: unspecified Qualified Code(s): E78.5 - Hyperlipidemia, unspecified
[2018-05-01 14:01] LABS: Estimated Average Glucose 114 mg/dl; Hemoglobin A1C 5.6 %
[2018-05-01 17:25] LABS: Adenovirus Not Detected (Not Detect); Bordetella Pertussis Not Detected (Not Detect); Chlamydophila pneumoniae Not Detected (Not Detect); Coronavirus 229E Not Detected (Not Detect); Coronavirus HKU1 Not Detected (Not Detect); Coronavirus NL63 Not Detected (Not Detect); Coronavirus OC43 DETECTED (Not Detect); Human Metapneumovirus Not Detected (Not Detect); Human Rhinovirus/Enterovirus Not Detected (Not Detect); Influenza A Subtype 2009 H1 Not Detected (Not Detect); Influenza A Untypeable Not Detected (Not Detect); Influenza B Not Detected (Not Detect); Mycoplasma pneumoniae Not Detected (Not Detect); Parainfluenza Virus 1 Not Detected (Not Detect); Parainfluenza Virus 2 Not Detected (Not Detect); Parainfluenza Virus 3 Not Detected (Not Detect); Parainfluenza Virus 4 Not Detected (Not Detect); Respiratory Syncytial Virus Not Detected (Not Detect)
[2018-05-02] MEDS: MethylPREDNISolone 40 MG/ML VIAL IVP SCH ×3 (00:24→17:21)
[2018-05-02] MEDS: Ipratropium/Albuterol Neb 3 ML IH SCH ×6 (04:18→23:17)
[2018-05-02 06:10] LABS: Basophils % 0.1 %; Hematocrit 32.8 % (35.3-44.9); Hemoglobin 10.5 g/dL (11.5-15.4); Immature Granulocytes % 0.8 % (0-4); Lymphocytes # 0.8 K/mcL (0.6-4.6); Lymphocytes % 4.3 %; Mean Corpuscular Hemoglobin 25.5 pg (28.0-33.3); Mean Corpuscular Volume 79.8 fL (83.0-100.0); Mean Platelet Volume 11.8 fL (9.4-12.4); Monocytes # 0.3 K/mcL (0.0-1.3); Monocytes % 1.7 %; Neutrophils # 16.3 K/mcL (1.6-8.9); Platelet Count 145 K/mcL (140-400); Red Blood Count 4.11 M/mcL (3.82-4.97); Red Cell Distribution Width 16.6 % (11.5-14.5); Segmented Neutrophils % 93.1 %
[2018-05-02 06:30] LABS: BUN/Creatinine Ratio 18 (6-26); Blood Urea Nitrogen 19 mg/dL (8-23); Calcium 8.8 mg/dL (8.6-10.3); Carbon Dioxide 26 mEq/L (23-29); Chloride 99 mEq/L (98-107); Glucose 209 mg/dL (70-105); Osmolality,Calculated 286 (280-300); Potassium 2.8 mEq/L (3.5-5.1); Sodium 134 mEq/L (136-145); eGFR For Non-African Americans 52 (> 60)
[2018-05-02] MEDS: Ranolazine 500 MG TAB.ER.12H PO SCH ×2 (07:59→20:20)
[2018-05-02] MEDS: Insulin LISPRO 300 UNITS/3 ML VIAL SQ SCH ×3 (08:00→17:21)
[2018-05-02] MEDS: Aspirin Enteric Coated 81 MG Tablet PO SCH (08:00)
[2018-05-02] MEDS: Metoprolol XL (24 HR) Succ 50 MG TAB.ER.24H PO SCH (08:01)
[2018-05-02] MEDS: Furosemide 20 MG/2 ML VIAL IVP SCH (08:05)
[2018-05-02] MEDS: Budesonide/Formoterol 160/4.5 1 PUFF INH IH SCH ×2 (10:51→19:39)
--- NOTE | 2018-05-02 12:57 | Internal Med Progress Note ---
Hospitalist Progress Note - Encounter Date of Encounter: 05/02/18 Time of Encounter: 12:51 - Subjective Interval History: Ms. Jolly is a 73 year old female with PMH of CHF, COPD, HLD, HTN and CAD with stents placed approximately 8 years ago now presented to the ED complaining of shortness of breath and chest pain. States she has been experiencing these symptoms with increased cough, fever, chills, and wheezing for approximately 5 days at this time. Describes the chest pain as substernal worsened with coughing. Admits to accompanying nausea. CXR from the ED revealed left perihilar consolidation likely pneumonia. Chest CTA revealed left lower lobe airspace disease compatible with pneumonia, negative for PE, with an 8 mm right lower lobe pulmonary nodule. His initial troponin was elevated at 0.11. BNP of 872. EKG from the ED showed dual paced rhythm with rate of 68. She was admitted in the hospital and started her on IV steroids, empirical antibiotic and IV Lasix. Since her troponin were elevated she was started on heparin gtt. Patient was seen and examined bedside. She denied any more active chest pain. Her shortness of breath little better, still having moderate shortness of breath and dyspnea on exertion - Exam Vitals: Temp Pulse Resp BP Pulse Ox 97.8 F 65 17 120/78 96 05/02/18 11:19 05/02/18 11:19 05/02/18 11:19 05/02/18 11:19 05/02/18 11:19 Exam: Gen: Alert, awake, Oriented to time,place and person Chest: Diminished breath sounds B/L, Moderate wheezing, No crackles, mild rales, ronchi+ Heart: S1S2+ RRR No murmurs Abd: Soft, NT, BS +, No organomegaly Ext: No edema, pulses are palpable, No calf tenderness Neuro : Benign findings Skin: No rash. - Assessment and Plan (1) Acute on chronic systolic (congestive) heart failure Current Visit: Yes Status: Acute Assessment and Plan: Reviewed her echocardiogram showed LVEF 40 - 45 % she does have mild CHF exacerbation Switched to oral Lasix today continue close monitoring cardiology on board, appreciate the recommendations (2) Left lower lobe pneumonia Current Visit: Yes Status: Acute Assessment and Plan: mostly bacteria cont Levaquin will f/u on sputum cx (3) COPD exacerbation Current Visit: Yes Status: Acute Assessment and Plan: Improving cont systemic steroids continue frequent bronchodilator therapy continue empirical antibiotic levofloxacin will try to wean her off the oxygen as she tolerates encouraged to use frequent incentive spirometry (4) Elevated troponin Current Visit: Yes Status: Acute Assessment and Plan: multi-factorial possible due to demand ischemia in the setting of copd exacerbation and pneumonia. plan of care as above. (5) CAD (coronary artery disease) Current Visit: Yes Status: Chronic Assessment and Plan: Resumed all home meds (6) HLD (hyperlipidemia) Current Visit: Yes Status: Chronic Assessment and Plan: continue simvastatin 40mg/PO daily. Reviewed lipid panel - LDL @ 54 - Time Spent with Patient Total time spent is greater than 50% in coordination of care (as documented) at patient's floor/unit and/or counseling patient: Internal Medicine: Result - Labs CBC & Chem 7: 05/02/18 05:32 05/02/18 05:32 Labs: Short CBC 05/02/18 Range/Units 05:32 WBC 17.5 H (4.3-11.1) K/mcL Hgb 10.5 L (11.5-15.4) g/dL Hct 32.8 L (35.3-44.9) % Plt Count 145 (140-400) K/mcL Neutrophils # 16.3 H (1.6-8.9) K/mcL BMP 05/02/18 05:32 Sodium 134 L Potassium 2.8 L Chloride 99 Carbon Dioxide 26 BUN 19 Creatinine 1.05 Glucose 209 H Calcium 8.8 - ABG Interpretation ABG results: ABG ABG pH 7.48 pH Units (7.32-7.45) H 04/30/18 18:10 ABG pCO2 30 mmHg (35-45) L 04/30/18 18:10 ABG pO2 67 mmHg (85-104) L 04/30/18 18:10 ABG O2 Saturation 95 % (95-98) 04/30/18 18:10 PT/INR, D-dimer PT 12.9 Seconds (9.4-12.1) H 04/30/18 17:48 Consult Discharge Plan - Plan Referrals: Joseph Naidu DO [Primary Care Provider] - 05/08/18 1:30 pm (2) Left lower lobe pneumonia Qualifiers: Pneumonia type: due to unspecified organism Qualified Code(s): J18.1 - Lobar pneumonia, unspecified organism (5) CAD (coronary artery disease) Qualifiers: Coronary Disease-Associated Artery/Lesion type: unspecified vessel or lesion type [place] vs. transplanted heart: unspecified whether [place] or transplanted heart Associated angina: angina presence unspecified Qualified Code(s): I25.10 - Atherosclerotic heart disease of [place] coronary artery without angina pectoris (6) HLD (hyperlipidemia) Qualifiers: Hyperlipidemia type: unspecified Qualified Code(s): E78.5 - Hyperlipidemia, unspecified
--- NOTE | 2018-05-02 17:49 | Electrocardiograph Report ---
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
[2018-05-02] MEDS: traMADol 50 MG TABLET PO PRN (18:35)
[2018-05-03] MEDS: MethylPREDNISolone 40 MG/ML VIAL IVP SCH ×2 (01:58→08:28)
[2018-05-03] MEDS: Ipratropium/Albuterol Neb 3 ML IH SCH ×3 (03:50→11:09)
[2018-05-03] MEDS: Budesonide/Formoterol 160/4.5 1 PUFF INH IH SCH (07:23)
[2018-05-03 07:54] VITALS: BP 118/75
[2018-05-03] MEDS: Insulin LISPRO 300 UNITS/3 ML VIAL SQ SCH (08:27)
[2018-05-03] MEDS: Metoprolol XL (24 HR) Succ 50 MG TAB.ER.24H PO SCH (08:28)
[2018-05-03] MEDS: Aspirin Enteric Coated 81 MG Tablet PO SCH (08:28)
[2018-05-03] MEDS: Ranolazine 500 MG TAB.ER.12H PO SCH (08:28)
[2018-05-03] MEDS: traMADol 50 MG TABLET PO PRN (08:29)
[2018-05-03] MEDS ORDERED: Levofloxacin 750 MG/150 ML 750 MG/150 ML BAG IVPB SCH (09:00)
[2018-05-03] MEDS ORDERED: Furosemide 20 MG TABLET PO SCH (09:00)
--- NOTE | 2018-05-03 10:48 | Discharge Summary ---
- NOTES TO OUTPATIENT PROVIDER Notes to Outpatient Provider: f/u with PCP in one week. Date of Encounter: 05/03/18 Time of Encounter: 10:44 - Discharge Diagnosis (1) Acute on chronic systolic (congestive) heart failure Priority: Primary Status: Acute (2) Left lower lobe pneumonia Priority: Primary Status: Acute Qualifiers: Pneumonia type: due to unspecified organism Qualified Code(s): J18.1 - Lobar pneumonia, unspecified organism (3) COPD exacerbation Priority: Primary Status: Acute (4) Elevated troponin Priority: Secondary Status: Acute (5) CAD (coronary artery disease) Priority: Secondary Status: Chronic Qualifiers: Coronary Disease-Associated Artery/Lesion type: unspecified vessel or lesion type [place] vs. transplanted heart: unspecified whether [place] or transplanted heart Associated angina: angina presence unspecified Qualified Code(s): I25.10 - Atherosclerotic heart disease of [place] coronary artery without angina pectoris (6) HLD (hyperlipidemia) Priority: Secondary Status: Chronic Qualifiers: Hyperlipidemia type: unspecified Qualified Code(s): E78.5 - Hyperlipidemia, unspecified Hospital course: Ms. Jolly is a 73 year old female with PMH of CHF, COPD, HLD, HTN and CAD with stents placed approximately 8 years ago now presented to the ED complaining of shortness of breath and chest pain. States she has been experiencing these symptoms with increased cough, fever, chills, and wheezing for approximately 5 days at this time. Describes the chest pain as substernal worsened with coughing. Admits to accompanying nausea. CXR from the ED revealed left perihilar consolidation likely pneumonia. Chest CTA revealed left lower lobe airspace disease compatible with pneumonia, negative for PE, with an 8 mm right lower lobe pulmonary nodule. His initial troponin was elevated at 0.11. BNP of 872. EKG from the ED showed dual paced rhythm with rate of 68. She was admitted in the hospital and started her on IV steroids, empirical antibiotic and IV Lasix. Since her troponin were elevated she was started on heparin gtt. Her elevated troponin are most likely due to demand ischemia with pneumonia and mild systolic heart failure exacerbation. So we did discontinue heparin drip. Patient was evaluated by french instructor who did not recommend any further workup. Her echocardiogram showed LVEF 40 - 45 %. With IV diuresis patient became euvolemic. With IV steroids, frequent bronchodilators therapy and systemic steroids, she got better slowly. Now she is breathing comfortably on room air. Will discharge her home in a stable condition today after having oxygen evaluation with ambulating pulse oxy study. - Time Spent with Patient Total time spent providing and/or coordinating discharge services: - Discharge Medications Prescriptions: New Furosemide [Lasix] 20 mg PO DAILY #30 tablet Levofloxacin [Levaquin] 750 mg PO Q48H #2 tablet predniSONE [PredniSONE] 40 mg PO DAILY #10 tablet Continue Acetaminophen [Tylenol] 325 mg PO Q4H PRN PRN Reason: Pain Albuterol Sulfate [Ventolin Hfa] 2 puff IH Q6H PRN PRN Reason: Shortness Of Breath Allopurinol [Zyloprim 100 MG] 100 mg PO DAILY Aspirin [Lo-Dose Aspirin EC] 81 mg PO DAILY Calcium Carbonate [Calcium] 1,200 mg PO BID Cholecalciferol (Vitamin D3) [Vitamin D3] 2,000 unit PO BID Clopidogrel [Plavix] 75 mg PO DAILY DiphenhydraMINE [Benadryl] 25 mg PO PRN PRN PRN Reason: itching/sleep EPINEPHrine [Epipen] 0.3 mg IM ONCE PRN PRN Reason: Allergic Reaction Fluticasone/Vilanterol [Breo Ellipta 100-25 Mcg INH] 1 puff IH DAILY Lisinopril [Zestril] 5 mg PO DAILY Loratadine [Claritin] 10 mg PO DAILY PRN PRN Reason: Allergy Symptoms Metoprolol Succinate [Toprol Xl] 100 mg PO DAILY Nitroglycerin 0.4 mg SL Q5M PRN PRN Reason: Chest Pain Omeprazole [PriLOSEC] 20 mg PO DAILY Ranolazine [Ranexa] 1,000 mg PO BID Simvastatin [Zocor] 40 mg PO HS Spironolactone [Aldactone] 25 mg PO DAILY Umeclidinium Printer [Incruse Ellipta] 1 puff IH DAILY Varenicline Tartrate [Chantix Starting Month GRACE] 1 tab PO PER PKG DI Discontinued Meloxicam 15 mg PO DAILY Home Medications: Acetaminophen [Tylenol] 325 mg PO Q4H PRN 05/01/18 [History] Albuterol Sulfate [Ventolin Hfa] 2 puff IH Q6H PRN 05/01/18 [History] Allopurinol [Zyloprim 100 MG] 100 mg PO DAILY 05/01/18 [History] Aspirin [Lo-Dose Aspirin EC] 81 mg PO DAILY 05/01/18 [History] Calcium Carbonate [Calcium] 1,200 mg PO BID 05/01/18 [History] Cholecalciferol (Vitamin D3) [Vitamin D3] 2,000 unit PO BID 05/01/18 [History] Clopidogrel [Plavix] 75 mg PO DAILY 05/01/18 [History] DiphenhydraMINE [Benadryl] 25 mg PO PRN PRN 05/01/18 [History] EPINEPHrine [Epipen] 0.3 mg IM ONCE PRN 05/01/18 [History] Fluticasone/Vilanterol [Breo Ellipta 100-25 Mcg INH] 1 puff IH DAILY 05/01/18 [History] Lisinopril [Zestril] 5 mg PO DAILY 05/01/18 [History] Loratadine [Claritin] 10 mg PO DAILY PRN 05/01/18 [History] Metoprolol Succinate [Toprol Xl] 100 mg PO DAILY 05/01/18 [History] Nitroglycerin 0.4 mg SL Q5M PRN 05/01/18 [History] Omeprazole [PriLOSEC] 20 mg PO DAILY 05/01/18 [History] Ranolazine [Ranexa] 1,000 mg PO BID 05/01/18 [History] Simvastatin [Zocor] 40 mg PO HS 05/01/18 [History] Spironolactone [Aldactone] 25 mg PO DAILY 05/01/18 [History] Umeclidinium Printer [Incruse Ellipta] 1 puff IH DAILY 05/01/18 [History] Varenicline Tartrate [Chantix Starting Month GRACE] 1 tab PO PER PKG DI 05/01/18 [History] Furosemide [Lasix] 20 mg PO DAILY #30 tablet 05/03/18 [Rx] Levofloxacin [Levaquin] 750 mg PO Q48H #2 tablet 05/03/18 [Rx] predniSONE [PredniSONE] 40 mg PO DAILY #10 tablet 05/03/18 [Rx] Allergies/Adverse Reactions: Allergy/AdvReac Type Severity Reaction Status Date / Time carvedilol [From Coreg] Allergy See Verified 05/01/18 14:34 Comments Penicillins [PCN] Allergy See Verified 05/01/18 14:34 Comments Tetanus Vaccines and Toxoid Allergy See Verified 05/01/18 14:34 Comments Date of admission: 05/01/18 13:27 Primary care physician: Joseph Naidu DO Consults: 04/30/18 17:22 Consult to Cardiology [CONS] Routine Comment: Consulting Provider: Cardiology [place] Reason for Consult: chest pain elevated trops Call Completed: No 05/01/18 09:02 Consult to Nurse Navigator [CONS] Routine Comment: COPD, CHF, PNEUMONIA - Constitutional Vitals: Temp Pulse Resp BP Pulse Ox 97.8 F 61 16 118/75 90 05/03/18 07:53 05/03/18 07:53 05/03/18 07:53 05/03/18 07:53 05/03/18 07:53 General appearance: Present: A&O X 3, no acute distress, answers questions appropriately Exam: Gen: Alert, awake, Oriented to time,place and person Chest: Diminished breath sounds B/L, Mild to moderate wheezing, No crackles, mild rales, ronchi+ Heart: S1S2+ RRR No murmurs Abd: Soft, NT, BS +, No organomegaly Ext: No edema, pulses are palpable, No calf tenderness Neuro : Benign findings Skin: No rash. - Patient Status Disposition: Home, Self-Care Condition: Good Overall status at discharge: patient is back to baseline - Discharge Instructions Follow Up With: Joseph Naidu DO [Primary Care Provider] - 05/08/18 1:30 pm - Diet and Activity Activity: increase activity as tolerated Diet: low salt diet
== END 2018-05-03 13:46 | disposition home or self-care (01) | DRG 189 ==
LOC: EMEROOARM 13:17 → 3BNU 13:17 → SUATTDRO 16:52 → 3BNU 18:11
PROVIDERS: ADMIT Internal Medicine; ATTEND Family Medicine